=== PATIENT | female | born 1945 | race Caucasian/White ===

== ENCOUNTER 2017-09-19 10:43 | Emergency (ER) | payer MEDICARE ==
[~2017-09-19] VITALS: Ht 149.9 cm; Wt 56.2 kg
[~2017-09-19 10:43] MED LIST changes: -KLOR-CON 1010 MEQ PO; -OXYBUTYNIN 5 MG5 M2 PO; -ULTRAM 50MG TAB50 MG PO
[2017-09-19] MEDS ORDERED: OXYBUTYNIN 5 MG5 M2 PO (11:01)
[2017-09-19] MEDS ORDERED: KLOR-CON 1010 MEQ PO (11:01)
[2017-09-19] MEDS ORDERED: ULTRAM 50MG TAB50 MG PO (11:49)
[2017-09-19 11:59] VITALS: BP 156/72
== END 2017-09-19 12:01 | disposition home or self-care (01) ==
LOC: M.ERS 10:43
DX: M79.604 Pain in right leg (principal); G62.9 Polyneuropathy, unspecified; I10 Essential (primary) hypertension; K21.9 Gastro-esophageal reflux disease without esophagitis; Z96.651 Presence of right artificial knee joint

== ENCOUNTER → 2017-09-19 | Outpatient (CLI) | payer MEDICARE ==
[~2017-09-19] MED LIST: ACETAMINOPHEN650 M5; ALPRAZOLAM 0.0.25 MG; ASPIRIN EC81 M1 PO; ASPIRIN325; B-100 COMPLEX1 EAC1 PO; CELEBREX 200 M200 MG; COLACE100 MG; FISH OIL 1,0001 EAC7 PO; HYDROCHLOROTHIA25 M1 PO; KLOR-CON 1010 MEQ PO; LOPRESSOR 50 MG50 M1 PO; OXYBUTYNIN 5 MG5 M2 PO; OXYIR 5 MG CAPSU5 M1; PRAVACHOL40 MG PO; TOPROL XL50 MG; ULTRAM 50MG TAB50 MG PO; VITAMIN D1000 UNI1 PO; VITAMIN D22000 UNIT PO; XARELTO10 M1; ZOLOFT 50 MG TA50 M1
== END ==
LOC: M.RAD 12:10
DX: Z12.31 Encounter for screening mammogram for malignant neoplasm of breast (principal); N63.41 Unspecified lump in right breast, subareolar

== ENCOUNTER → 2017-09-24 | Outpatient (CLI) | payer MEDICARE ==
[~2017-09-24] MED LIST changes: +KLOR-CON 1010 MEQ PO; +OXYBUTYNIN 5 MG5 M2 PO; +ULTRAM 50MG TAB50 MG PO
== END | disposition home or self-care (01) ==
LOC: M.ULTRA 07:48
DX: C50.911 Malignant neoplasm of unspecified site of right female breast (principal); C77.3 Secondary and unspecified malignant neoplasm of axilla and upper limb lymph nodes; I10 Essential (primary) hypertension; K21.9 Gastro-esophageal reflux disease without esophagitis; Z90.710 Acquired absence of both cervix and uterus; Z98.41 Cataract extraction status, right eye; Z79.82 Long term (current) use of aspirin; Z79.899 Other long term (current) drug therapy; Z98.890 Other specified postprocedural states; Z79.891 Long term (current) use of opiate analgesic

== ENCOUNTER → 2017-10-04 | Outpatient (CLI) | payer MEDICARE ==
[2017-10-04 08:43] LABS: ALBUMIN 3.7 g/dL (3.4-5.0); CALCIUM 9.9 mg/dL (8.5-10.1); CREATININE 0.7 mg/dL (0.6-1.3); POTASSIUM 3.8 mmol/L (3.5-5.1); TOTAL BILIRUBIN 0.7 mg/dL (<0.1-1.0); TOTAL PROTEIN 6.9 g/dL (6.4-8.2)
== END ==
LOC: M.LAB 07:51 → M.MRI 08:45
PROVIDERS: Surgery
DX: C50.911 Malignant neoplasm of unspecified site of right female breast (principal); R92.8 Other abnormal and inconclusive findings on diagnostic imaging of breast

== ENCOUNTER → 2018-01-16 | Outpatient (CLI) | payer MEDICARE | LOC: M.ULTRA 11:02 | DX: C50.511 Malignant neoplasm of lower-outer quadrant of right female breast (principal); C79.51 Secondary malignant neoplasm of bone; I10 Essential (primary) hypertension; K21.9 Gastro-esophageal reflux disease without esophagitis; Z17.0 Estrogen receptor positive status [ER+] ==

== ENCOUNTER → 2018-12-16 | Outpatient (CLI) | payer MEDICARE | LOC: M.RAD 11-14 14:57 | DX: N63.13 Unspecified lump in the right breast, lower outer quadrant (principal); C50.511 Malignant neoplasm of lower-outer quadrant of right female breast; Z17.0 Estrogen receptor positive status [ER+] ==

== ENCOUNTER → 2018-12-31 | Outpatient (CLI) | payer MEDICARE | LOC: M.RAD 13:00 | DX: Z12.31 Encounter for screening mammogram for malignant neoplasm of breast (principal) ==

== ENCOUNTER → 2019-01-03 | Outpatient (CLI) | payer MEDICARE | LOC: M.RAD 01-02 09:06 | DX: N63.20 Unspecified lump in the left breast, unspecified quadrant (principal); R92.2 Inconclusive mammogram ==

== ENCOUNTER → 2020-04-22 | Outpatient (CLI) | payer MEDICARE | LOC: M.RAD 10:29 | PROVIDERS: ATTEND Internal Medicine Hematology & Oncology | DX: Z12.31 Encounter for screening mammogram for malignant neoplasm of breast (principal) ==